=== PATIENT | female | born 1945 | race Caucasian/White ===

== ENCOUNTER → 2016-07-17 | Outpatient (CLI) | payer OTHER, MEDICARE ==
[2016-07-17 12:32] LABS: CHOL/HDL RATIO 3.26 RATIO (0-4.0); LDL CHOLESTEROL,CALCULATED 80.4 mg/dL
== END ==
LOC: LAB 11:57
PROVIDERS: ATTEND Nurse Practitioner Family
DX: E78.5 Hyperlipidemia, unspecified (principal); E03.9 Hypothyroidism, unspecified; F43.21 Adjustment disorder with depressed mood; G47.19 Other hypersomnia
CPT/HCPCS: 36415; 82247; 82465; 82550; 82977; 83718; 84075; 84443; 84450; 84460; 84478

== ENCOUNTER → 2016-07-25 | Outpatient (CLI) | payer OTHER, MEDICARE ==
--- NOTE | 2016-07-28 15:17 | HOLTER ---
[facility] [place] Interpretive Statements This is a 48 hour study done for "palpitations, flutter." Accompanying diary lists 3 "events" without symptoms with one of which including a 3 beat run of SVT. There were also 4 "events" with specific symptoms of: "watching TV-flutter", "sitting-pause then beat", "sitting-hard beat", and "reading-hard beat." The symptomatic events correspond with NSR with 6 beat run of SVT at 150 BPM, NSR at 64 BPM without ectopy, NSR at 64 BPM without ectopy, and the last symptomatic event was not sampled by the quality control engineering technician (presumptively because of no ectopy). There was a total of 12 possible ventricular ectopics which were all singlets. There was, out of a total of 174,390 recorded beats 72 that were possible atrial ectopics with the longest run being the 6 beats. There were a few episodes of what appears to be rate-related ST depression (i.e. at 1:19 PM day 1 when the rhythm was NSR at 98 BPM and there was over 1.[address] depression). Another episode of ST depression occurred at 5:42 PM when the rate was 125 and the rhythm was, again, NSR. IMPRESSION: Symptoms correlate partly with brief runs of SVT with the longest being a run of 6 beats and there is also a rate related ST depression that could represent ischemia. Suggest stress testing be considered. Electronically Signed On 07-28-16 15:46:18 MDT by Navneet Aviles MD [id number]
== END ==
LOC: EKG 12:44
PROVIDERS: ATTEND Nurse Practitioner Family
DX: R00.2 Palpitations (principal); E03.9 Hypothyroidism, unspecified; E78.5 Hyperlipidemia, unspecified; K21.9 Gastro-esophageal reflux disease without esophagitis; F43.21 Adjustment disorder with depressed mood; F41.9 Anxiety disorder, unspecified; N63 Unspecified lump in breast
CPT/HCPCS: 93225; 93226; 93227; G0463

== ENCOUNTER → 2016-08-14 | Outpatient (CLI) | payer OTHER, MEDICARE ==
--- NOTE | 2016-08-14 09:37 | EKG ---
[address] [address] Measurements Intervals [place] Rate: 47 P: 48 OR: 168 QRS: 41 QRSD: 83 T: 22 QT: 462 QTc: 426 Interpretive Statements SINUS BRADYCARDIA No previous ECG available for comparison Electronically Signed On 08-14-16 13:10:33 MDT by Jaun Butler [id number]
== END ==
LOC: MOB EKG 09:24
PROVIDERS: ATTEND Specialist
DX: R00.2 Palpitations (principal); R00.1 Bradycardia, unspecified
CPT/HCPCS: 93005; 93010

== ENCOUNTER → 2016-10-14 | Outpatient (CLI) | payer OTHER, MEDICARE | LOC: MMPC 10:00 | PROVIDERS: ATTEND Specialist | DX: I47.1 Supraventricular tachycardia (principal); G47.30 Sleep apnea, unspecified; F41.9 Anxiety disorder, unspecified | CPT/HCPCS: 99213; G0463 ==